=== PATIENT | male | born 1950 | race African-American/Black ===

== ENCOUNTER 2016-06-20 23:51 | Inpatient (IN) | payer OTHER ==
[~2016-06-20] VITALS: Ht 177.8 cm; Wt 90.0 kg
[2016-06-21] VITALS (9 sets, daily range): BP systolic 126–151; BP diastolic 71–100; PULSE 73–92; RESP 20–24; TEMP 98.2; O2SAT 89–99
[2016-06-21] MEDS ORDERED: methylPREDNISolone SOD SUCC 125 MG/2 ML VIAL IVP ONE
[2016-06-21] MEDS: RESP: ALBUTEROL 2.5 MG/IPRATROPIUM 0.5 MG NEB (SCH) INH ×3 (00:06→00:22)
--- NOTE | 2016-06-21 00:27 | PD ---
HPI Chief Complaint: Respiratory Distress Time Seen by Provider: 23:57 Travel History International Travel<30 days: No Contact w/Intl Traveler<30days: No Traveled to known affect area: No History of Present Illness HPI 66-year-old male presents to the emergency department by private vehicle for evaluation of shortness of breath. Patient reports that he lives in [facility] and is on his way home from the [facility] back to [facility] to his residence. Patient states approximately a week ago he left home to visit the [facility] to visit his daughter and while he was in route to her home he became ill and required hospitalization in the [facility] for 5 days where he was treated for exacerbation of his COPD and pneumonia. Patient reports that when he left the hospital after 5 days he was told his pneumonia had resolved but he was given a prescription for antibiotic which she has been taking. Patient denies any fever or chills. Patient denies any chest pain. Patient complains of shortness of breath. Patient reports he also has had previous history of CHF. Patient states that he was lost and a police sergeant reportedly stopped him and showed him the way to the hospital here and he presents now for evaluation. Patient's had no new swelling of his lower extremities. Patient does not report any orthopnea or hemoptysis. Patient states that he became very anxious and scared because his shortness of breath was worsening. Patient wears supplemental oxygen at all times. Patient was reportedly given supplemental oxygen by the [place] and [place]. Patient was also seen today in [facility]. PFSH Past Medical History Narrative Medical COPD, CHF, pneumonia, left hand fracture, left partial pneumonectomy, posttraumatic stress disorder; tobacco and substance use marijuana cocaine; nursing notes reviewed Social History Tobacco Use: Yes Allergies-Medications (Allergen,Severity, Reaction): Coded Allergies: No Known Allergies (Unverified , 06/21/16) Reported Meds & Prescriptions Reported Meds & Active Scripts Active Reported Lisinopril 10 Mg Tab 10 Mg PO DAILY Tamsulosin (Tamsulosin HCl) 0.4 Mg Cap 0.4 Mg PO HS Prednisone 20 Mg Tab 20 Mg PO DIRECTED 40 MG twice a day x 3 days, then 20 MG daily x 3 days, then 10 MG daily x 3 days Lasix (Furosemide) 20 Mg Tab 20 Mg PO BID Narrative Medication Antibiotic supplemental oxygen Review of Systems Except as stated in HPI: all other systems reviewed are Neg General / Constitutional: No: Fever, Chills HENT: No: Congestion Cardiovascular: Positive: Dyspnea on exertion, No: Chest Pain or Discomfort, Diaphoresis Respiratory: Positive: Cough, Shortness of Breath, No: Orthopnea, Hemoptysis, Pleuritic Pain Gastrointestinal: No: Nausea, Vomiting, Abdominal Pain Genitourinary: No: Decreased Urinary Output, Flank Pain Musculoskeletal: No: Myalgias, Arthralgias, Edema Neurologic: No: Weakness, Dizziness, Syncope Psychiatric: Positive: Anxiety Endocrine: No: Heat Intolerance Hematologic/Lymphatic: No: Easy Bruising Physical Exam Narrative GENERAL: Well-developed well-nourished male in obvious acute respiratory distress with work of breathing and speaking and single word answers sitting upright on side of exam bed. We are vital signs temperature 98.2; heart rate 73 and regular; respiratory rate 24 and labored SKIN: Warm and dry. HEAD: Atraumatic. Normocephalic. EYES: Pupils equal and round. No scleral icterus. No injection or drainage. ENT: No nasal bleeding or discharge. Mucous membranes pink and moist. NECK: Trachea midline. No JVD. CARDIOVASCULAR: Regular rate and rhythm. RESPIRATORY: With accessory muscle use. Bilateral expiratory wheeze. Breath sounds equal bilaterally. GASTROINTESTINAL: Abdomen soft, non-tender, nondistended. Hepatic and splenic margins not palpable. MUSCULOSKELETAL: Extremities without clubbing, cyanosis, or edema. No obvious deformities. NEUROLOGICAL: Awake and alert. No obvious cranial nerve deficits. Motor grossly within normal limits. Five out of 5 muscle strength in the arms and legs. Normal speech. PSYCHIATRIC: Appropriate mood and affect; insight and judgment normal. Data Data Last Documented VS Vital Signs Date Time Temp Pulse Resp B/P Pulse Ox O2 Delivery O2 Flow Rate FiO2 06/21/16 01:30 96 Nasal Cannula 2.00 06/21/16 01:00 80 24 132/74 06/21/16 00:13 98.2 Orders Complete Blood Count With Diff (06/20/16 23:57) Comprehensive Metabolic Panel (06/20/16 23:57) B-Type Natriuretic Peptide (06/20/16 23:57) Act Partial Throm Time (Ptt) (06/20/16 23:57) Prothrombin Time / Inr (Pt) (06/20/16 23:57) Magnesium (Mg) (06/20/16 23:57) Ckmb (Isoenzyme) Profile (06/20/16 23:57) Troponin I (06/20/16 23:57) Urinalysis - C+S If Indicated (06/20/16 23:57) Iv Access Insert/Monitor (06/20/16 23:57) Electrocardiogram (06/20/16 23:57) Ecg Monitoring (06/20/16 23:57) Oximetry (06/20/16 23:57) Oxygen Administration (06/20/16 23:57) Chest, Single Ap (06/20/16 23:57) Sodium Chloride 0.9% Flush (Ns Flush) (06/21/16 00:00) Methylprednisolone So Succ Inj (Solumedr (06/21/16 00:00) Albuterol-Ipratropium Neb (Duoneb Neb) (06/21/16 00:00) Drug Screen, Random Urine (06/21/16 00:20) Lactic Acid (06/21/16 00:27) Blood Culture (06/21/16 00:27) Piperacil-Tazo 3.375 Gm Premix (Zosyn 3. (06/21/16 00:30) Arterial Blood Gas (Abg) (06/21/16 ) CKMB (06/21/16 00:20) CKMB% (06/21/16 00:20) Furosemide Inj (Lasix Inj) (06/21/16 01:15) Calcium Gluconate Inj (Calcium Gluconate (06/21/16 01:15) Sodium Bicarbonate 8.4% Inj (Sodium Bica (06/21/16 01:15) Insulin Human Regular Inj (Novolin R Inj (06/21/16 01:15) Albuterol-Ipratropium Neb (Duoneb Neb) (06/21/16 01:15) Dextrose 50% In Jose Antonio (Vial) Inj (D50w (Vi (06/21/16 01:15) D-Dimer (06/21/16 00:20) Admit Order (Ed Use Only) (06/21/16 ) ^ Saline Lock (06/21/16 02:07) Resp Oxygen Mervin C Titrat 1-4 L (06/21/16 ) ^ Notify Dr: Other (06/21/16 02:07) Sodium Chloride 0.9% Flush (Ns Flush) (06/21/16 09:00) Sodium Chloride 0.9% Flush (Ns Flush) (06/21/16 02:15) Labs Laboratory Tests Test 06/21/16 06/21/16 06/21/16 00:20 00:45 00:46 White Blood Count 13.8 TH/MM3 Red Blood Count 4.06 MIL/MM3 Hemoglobin 9.9 GM/DL Hematocrit 31.6 % Mean Corpuscular Volume 78.0 FL Mean Corpuscular Hemoglobin 24.3 PG Mean Corpuscular Hemoglobin 31.2 % Concent Red Cell Distribution Width 18.6 % Platelet Count 479 TH/MM3 Mean Platelet Volume 7.4 FL CBC Comment AUTO DIFF Differential Total Cells 100 Counted Neutrophils % (Manual) 81 % Lymphocytes % 12 % Monocytes % 7 % Neutrophils # (Manual) 11.2 TH/MM3 Differential Comment FINAL DIFF MANUAL Platelet Estimate HIGH Platelet Morphology Comment NORMAL Ovalocytes 1+ Prothrombin Time 10.0 SEC Prothromb Time International 0.9 RATIO Ratio Activated Partial 26.3 SEC Thromboplast Time D-Dimer Quantitative (PE/DVT) 1.37 MG/L FEU Sodium Level 143 MEQ/L Potassium Level 5.5 MEQ/L Chloride Level 102 MEQ/L Carbon Dioxide Level 35.0 MEQ/L Anion Gap 6 MEQ/L Blood Urea Nitrogen 31 MG/DL Creatinine 1.40 MG/DL Estimat Glomerular Filtration 62 ML/MIN Rate Random Glucose 132 MG/DL Calcium Level 8.4 MG/DL Magnesium Level 2.7 MG/DL Total Bilirubin 0.4 MG/DL Aspartate Amino Transf 63 U/L (AST/SGOT) Alanine Aminotransferase 40 U/L (ALT/SGPT) Alkaline Phosphatase 72 U/L Total Creatine Kinase 215 U/L Creatine Kinase MB 2.7 NG/ML Troponin I LESS THAN 0.02 NG/ML B-Type Natriuretic Peptide 63 PG/ML Total Protein 7.2 GM/DL Albumin 3.1 GM/DL Lactic Acid Level 1.4 mmol/L Blood Gas Puncture Site RT RADIAL Blood Gas Patient Temperature 98.6 Blood Gas HCO3 34 mmol/L Blood Gas Base Excess 9.3 mmol/L Blood Gas Oxygen Saturation 87 % Arterial Blood pH 7.40 Arterial Blood Partial 57 mmHG Pressure CO2 Arterial Blood Partial 69 mmHG Pressure O2 Arterial Blood Oxygen Content 11.3 Vol % Arterial Blood 5.2 % Carboxyhemoglobin Arterial Blood Methemoglobin 1.4 % Blood Gas Hemoglobin 9.2 G/DL Oxygen Delivery Device NASAL CANNULA Blood Gas Liter Flow 2 L/M MDM Medical Decision Making Medical Screen Exam Complete: Yes Emergency Medical Condition: Yes Medical Record Reviewed: Yes Interpretation(s) Vital Signs Date Time Temp Pulse Resp B/P Pulse Ox O2 Delivery O2 Flow Rate FiO2 06/21/16 00:13 98.2 73 24 143/71 92 CBC & BMP Diagram 06/21/16 00:20 Last Impressions Chest X-Ray 06/20/16 3257 Signed Impressions: Service Date/Time: Tuesday, June 21, 2016 00:27 - CONCLUSION: 1. Cardiomegaly and findings of vascular congestion without overt failure. 2. Bilateral atelectasis 3. 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 Gerber Kaplan MD Differential Diagnosis Dyspnea, exacerbation COPD, CHF, PE, pneumonia, ACS Narrative Course Patient placed on monitoring analyst and supplemental oxygen administered cannula; Solu-Medrol 125 mg IV administered DuoNeb updrafts 3 administered specimens collected patient dispatcher street department IV antibiotic after blood cultures obtained IV antibiotics administered Patient show any evidence of improvement after updraft treatment and ongoing supplemental oxygen Imaging study shows cardiomegaly and also congestion; old rib injury Patient given one-time dose of Lasix Patient's case discussed with on-call implementation specialist patient stable for medicine admission to ICU we'll be available for consultation Case discussed with on-call medicine will accept patient to their service Patient is aware of need for admission to the intensive care unit and is agreeable to admission plan Critical Care Narrative Aggregate critical care time was 35 minutes. Time to perform other separately billable procedures was not included in the critical care time. My time did not include minutes spent treating any other patients simultaneously or on activities that did not directly contribute to the patient's treatment. The services I provided to this patient were to treat and/or prevent clinically significant deterioration that could result in: Respiratory arrest, arrhythmia, I provided critical care services requiring my management, as noted below: Chart data review, documentation time, medication orders and management, vital sign assessments/reviewing monitor data, ordering and reviewing lab tests, ordering and interpreting/reviewing x-rays and diagnostic studies, care of the patient and discussion of the patient with the admitting physicians. Procedures EKG Prior to Arrival: No Physician Communication Physician Communication case discussed with implementation specialist; case discussed with [facility] --admit to [facility] ICU Diagnosis Primary Impression: Dyspnea Qualified Code: R06.02 - Shortness of breath Additional Impressions: COPD exacerbation CHF (congestive heart failure) Qualified Code: I50.22 - Chronic systolic congestive heart failure Admitting Information Admitting Physician Requests: Admit Lucia Bhat MD Jun 21, 2016 00:27
[2016-06-21] MEDS ORDERED: PIPERACIL-TAZO 3.375 GM PREMIX 50 ML IV ONE (00:30)
[2016-06-21 00:38] LABS: HEMATOCRIT 31.6 % (39.0-51.0); MEAN CORPUSCULAR HEMOGLOBIN 24.3 PG (27.0-34.0); MEAN CORPUSCULAR HGB CONC 31.2 % (32.0-36.0); PLATELET COUNT 479 TH/MM3 (150-450); RED BLOOD COUNT 4.06 MIL/MM3 (4.50-5.90); RED CELL DISTRIBUTION WIDTH 18.6 % (11.6-17.2); WHITE BLOOD COUNT 13.8 TH/MM3 (4.0-11.0)
[2016-06-21 00:39] LABS: HEMO FLAGS AUTO DIFF
--- NOTE | 2016-06-21 00:44 | RADHPO ---
EXAM DATE/TIME: 06/21/2016 00:27 [facility] COMPARISON: No previous studies available for comparison. INDICATIONS : Shortness of breathm difficulty breathing starting today MEDICAL HISTORY : Chronic obstructive pulmonary disease. Congestive heart failure. Left pneumothorax SURGICAL HISTORY : Left lobectomey ENCOUNTER: Initial ACUITY: 1 day PAIN SCORE: 0/10 LOCATION: Bilateral chest FINDINGS: The cardiac silhouette is enlarged in transverse diameter. There is prominence of the central pulmona ry vasculature with indistinct vascular margins compatible with vascular congestion but no evidence o f overt failure. There is subsegmental atelectasis in the both bases. No pleural effusions are ident ified. There is a groundglass pattern to the anterior aspect of the right fourth rib which may reflec t fibrous dysplasia. CT scan is recommended for further evaluation if clinically indicated. This can be performed on an elective basis. CONCLUSION: 1. Cardiomegaly and findings of vascular congestion without overt failure. 2. Bilateral atelectasis 3. 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 This report was verified electronically.
[2016-06-21 00:48] LABS: CHLORIDE 102 MEQ/L (98-107); POTASSIUM 5.5 MEQ/L (3.5-5.1); SODIUM (NA) 143 MEQ/L (136-145)
[2016-06-21 00:52] LABS: ANION GAP 6 MEQ/L (5-15); BLOOD UREA NITROGEN 31 MG/DL (7-18); MAGNESIUM 2.7 MG/DL (1.5-2.5)
[2016-06-21 00:54] LABS: APTT (PATIENT) 26.3 SEC (24.3-30.1); INTERNATIONAL NORMALIZED RATIO 0.9 RATIO
[2016-06-21 00:55] LABS: ALT (GPT) 40 U/L (12-78); AST (GOT) 63 U/L (15-37)
[2016-06-21 00:56] LABS: GLOMERULAR FILTRATION RATE 62 ML/MIN (>89); NEUTROPHIL # MANUAL DIFF 11.2 TH/MM3 (1.8-7.7); POLYS (SEG NEUTROPHILS) 81 % (16-70); WBC DIFF SAMPLE 100
[2016-06-21 00:57] LABS: OVALOCYTES 1+ (NORMAL); PLATELET ESTIMATE SMEAR HIGH (NORMAL); PLATELET MORPHOLOGY NORMAL (NORMAL); SCAN/DIFF FINAL DIFF MANUAL; TOTAL BILIRUBIN ADULT 0.4 MG/DL (0.2-1.0)
[2016-06-21 00:58] LABS: ALKALINE PHOSPHATASE 72 U/L (45-117); CREATINE KINASE 215 U/L (39-308)
[2016-06-21 01:00] LABS: BLOOD GAS BASE EXCESS 9.3 mmol/L (-2-2); BLOOD GAS CARBOXYHEMOGLOBIN 5.2 % (0-4); BLOOD GAS HCO3 34 mmol/L (22-26); BLOOD GAS METHEMOGLOBIN 1.4 % (0-2); BLOOD GAS O2 HGB SATURATION 87 % (90-100); BLOOD GAS OXYGEN CONTENT 11.3 Vol % (12.0-20.0); BLOOD GAS PCO2 57 mmHG (38-42); BLOOD GAS PO2 69 mmHG (61-120); BLOOD GAS TOTAL HGB 9.2 G/DL (12.0-16.0); CRITICAL VALUE YES; DRAW SITE RT RADIAL; LITER FLOW 2 L/M; NUMBER OF ARTERIAL PUNCTURES 1; OXYGEN DEVICE NASAL CANNULA; STAT YES; TEMP CORR TO 98.6; ULNAR PULSE PRESENT
[2016-06-21 01:10] LABS: CKMB 2.7 NG/ML (0.5-3.6)
[2016-06-21] MEDS ORDERED: INSULIN HUMAN REGULAR 1,000 UNITS/10 ML VIAL IV PUSH ONE (01:15)
[2016-06-21] MEDS ORDERED: CALCIUM GLUCONATE INJ 1 GM in DEXTROSE 5% IN WATER 100ML INJ 100 ML IV ONE ×2 (01:15)
[2016-06-21] MEDS ORDERED: RESP: ALBUTEROL 2.5 MG/IPRATROPIUM 0.5 MG NEB (SCH) NEB ONE (01:15)
[2016-06-21] MEDS ORDERED: SODIUM BICARBONATE 8.4% INJ 50 MEQ/50 ML SYR IV PUSH ONE (01:15)
[2016-06-21] MEDS ORDERED: DEXTROSE 50% IN WATER 50 ML VIAL(D50) IV ONE (01:15)
[2016-06-21] MEDS ORDERED: FUROSEMIDE 20 MG/2 ML VIAL IV PUSH ONE (01:15)
[2016-06-21] MEDS ORDERED: DEXTROSE 50% IN WATER 50 ML SYRINGE IV ONE (01:15)
[2016-06-21] MEDS ORDERED: CHLORHEXIDINE GLUCONATE 2 % 1 PACK (2 CLOTHS) TOP PRN (02:15)
[2016-06-21] MEDS ORDERED: ACETAMINOPHEN 325 MG TAB PO PRN (02:15)
[2016-06-21] MEDS ORDERED: MISCELLANEOUS NURSING INFORMATION XX SCH (02:15)
[2016-06-21] MEDS ORDERED: BISACODYL 10 MG SUPP PR PRN (02:15)
[2016-06-21] MEDS ORDERED: ACETAMINOPHEN/HYDROcodone 325 MG/5 MG TAB PO PRN (02:15)
[2016-06-21] MEDS ORDERED: RESP: ALBUTEROL 2.5 MG/IPRATROPIUM 0.5 MG NEB (PRN) NEB (02:15)
[2016-06-21] MEDS ORDERED: SODIUM CHLORIDE 0.9% FLUSH 5 ML FLUSH FLUSH PRN (02:15)
[2016-06-21] MEDS ORDERED: LORazepam 2 MG/ML VIAL IV PUSH PRN (02:15)
[2016-06-21] MEDS ORDERED: ONDANSETRON HCL 4 MG/2 ML VIAL IVP PRN (02:15)
[2016-06-21] MEDS ORDERED: ACETAMINOPHEN/HYDROcodone 325 MG/10 MG TAB PO PRN (02:15)
[2016-06-21] MEDS ORDERED: SODIUM CHLORIDE 0.9% FLUSH 5 ML FLUSH IVF PRN ×2 (02:15)
[2016-06-21 02:28] LABS: BLOOD, URINE SMALL (NEG); GLUCOSE,URINE NEG (NEG); KETONE, URINE NEG (NEG); NITRITE,URINE NEG (NEG); PH, URINE 7.5 (5.0-8.5)
[2016-06-21 02:36] LABS: BARBITURATES, URINE NEG (NEG); COCAINE, URINE POS (NEG)
[2016-06-21 02:37] LABS: AMPHETAMINE, URINE NEG (NEG)
[2016-06-21 02:40] LABS: URINE COLOR YELLOW (YELLW/STRAW)
[2016-06-21 02:41] LABS: COMMENT (UR) CULT NOT INDICATED; CULTURE IF INDICATED CULT NOT INDICATED; SQUAMOUS EPITHELIAL CELL URINE 0-5 /hpf (0-5); WBC, URINE 0-2 /hpf (0-5)
[2016-06-21] MEDS ORDERED: TAMS0.4C4 PO (02:42)
[2016-06-21] MEDS ORDERED: LISI10TA3 PO (02:42)
[2016-06-21] MEDS ORDERED: FURO1TAB62 PO (02:42)
[2016-06-21] MEDS ORDERED: PRED20 PO (02:42)
[2016-06-21] MEDS ORDERED: CHLORHEXIDINE GLUCONATE 2 % 1 PACK (2 CLOTHS) TOP SCH (04:00)
[2016-06-21] MEDS ORDERED: methylPREDNISolone SOD SUCC 40 MG/1 ML VIAL IV PUSH SCH (06:00)
[2016-06-21] MEDS ORDERED: SODIUM CHLORIDE 0.9% FLUSH 5 ML FLUSH FLUSH SCH (09:00)
[2016-06-21] MEDS ORDERED: BUDESONIDE-FORMOTEROL 160/4.5 MCG INHALER INH SCH (09:00)
[2016-06-21] MEDS ORDERED: SODIUM CHLORIDE 0.9% FLUSH 5 ML FLUSH IVF SCH (09:00)
[2016-06-21] MEDS ORDERED: LEVOFLOXACIN 750 MG PREMIX INJ 150 ML IV ONE (09:00)
--- NOTE | 2016-06-21 16:44 | EKG ---
Date Performed: 06/21/2016 Time Performed: 01:38:12 PTAGE: 66 years EKG: Sinus rhythm Left axis deviation rSr'(V1) - probable normal variant Abnormal ECG NO PREVIOUS TRACING DOCTOR: Hieu Stevenson Interpretating Date/Time 06/21/2016 16:42:02
== END 2016-06-21 06:56 | disposition left against medical advice (07) | DRG 192 ==
LOC: PHED 23:51 → PHEDA 06-21 02:09 → PHEDH 06-21 06:09
PROVIDERS: ADMIT Family Medicine; ATTEND Family Medicine
DX: J44.1 Chronic obstructive pulmonary disease with (acute) exacerbation (principal); I50.9 Heart failure, unspecified; Z90.2 Acquired absence of lung [part of]; Z72.0 Tobacco use; Z87.01 Personal history of pneumonia (recurrent); Z79.52 Long term (current) use of systemic steroids; F14.90 Cocaine use, unspecified, uncomplicated
CPT/HCPCS: 36600; 71010; 80053; 80307; 81001; 82550; 82552; 82805; 83605; 83735; 83880; 84484; 85007; 85027; 85379; 85610; 85730; 87040; 93005; 94640; 94664; 96365; 96368; 96375; J0610; J1815; J1940; J2543; J2930